=== PATIENT | male | born 1950 | race Caucasian/White ===

== ENCOUNTER 2021-09-26 11:36 | Inpatient (IN) ==
[2021-09-26] MEDS ORDERED: *HR* Dextrose 50 % in Water (Syg) 50 ML SYRINGE IVP PRN (12:38)
[2021-09-26] MEDS ORDERED: D5% in Water 1,000 ML IVC PRN (12:38)
[2021-09-26] MEDS ORDERED: Dextrose 4 GM Chewable Tablets PO PRN ×2 (12:38)
[2021-09-26] MEDS: Insulin LISPRO 300 UNITS/3 ML VIAL SUBQ SCH ×2 (16:42→22:04)
[2021-09-26] MEDS: Metoprolol 100 MG TABLET PO SCH (22:03)
[2021-09-26] MEDS: cephALEXin 500 MG CAPSULE PO SCH (22:03)
[2021-09-26] MEDS: Gabapentin 100 MG CAPSULE PO SCH (22:04)
[2021-09-26] MEDS: Insulin DETEMIR 100 UNIT/ML X5UNITS SUBQ SCH (22:05)
[2021-09-27 06:20] LABS: Basophils # 0.1 K/mcL (0.0-0.2); Basophils % 1.2 %; Eosinophils # 0.2 K/mcL (0.0-0.6); Eosinophils % 2.1 %; Hematocrit 37.1 % (37.5-50.1); Hemoglobin 12.1 g/dL (12.9-16.9); Immature Granulocytes % 4.9 % (0-4); Lymphocytes # 2.9 K/mcL (0.6-4.6); Lymphocytes % 29.3 %; Mean Corpuscular HGB Conc 32.6 g/dL (31.6-35.5); Mean Corpuscular Hemoglobin 29.1 pg (28.0-33.3); Mean Corpuscular Volume 89.2 fL (83.0-100.0); Mean Platelet Volume 10.9 fL (9.4-12.4); Monocytes # 1.2 K/mcL (0.0-1.3); Monocytes % 11.5 %; Neutrophils # 5.1 K/mcL (1.6-8.9); Platelet Count 360 K/mcL (140-400); Red Blood Count 4.16 M/mcL (4.19-5.50); Red Cell Distribution Width 14.8 % (11.5-14.5)
[2021-09-27 07:06] LABS: BUN/Creatinine Ratio 25 (6-26); Blood Urea Nitrogen 32 mg/dL (8-23); Calcium 10.5 mg/dL (8.6-10.3); Carbon Dioxide 28 mEq/L (23-29); Chloride 102 mEq/L (98-107); Glucose 166 mg/dL (70-105); Osmolality,Calculated 293 (280-300); Sodium 136 mEq/L (136-145); eGFR For African Americans > 60 (> 60); eGFR For Non-African Americans 56 (> 60)
[2021-09-27] MEDS: Metoprolol 100 MG TABLET PO SCH ×2 (08:24→22:07)
[2021-09-27] MEDS: Gabapentin 100 MG CAPSULE PO SCH ×2 (08:25→22:08)
[2021-09-27] MEDS: cephALEXin 500 MG CAPSULE PO SCH ×2 (08:25→22:08)
[2021-09-27] MEDS: Aspirin 81 MG TAB.CHEW PO SCH (08:25)
[2021-09-27] MEDS: modafiniL 100 MG TABLET PO SCH (08:25)
[2021-09-27] MEDS: Cyanocobalamin (B-12) 1,000 MCG TABLET PO SCH (08:25)
[2021-09-27] MEDS: Insulin DETEMIR 100 UNIT/ML X5UNITS SUBQ SCH ×2 (08:34→22:08)
[2021-09-27] MEDS: Insulin LISPRO 300 UNITS/3 ML VIAL SUBQ SCH ×4 (08:34→22:08)
[2021-09-27 10:49] LABS: Estimated Average Glucose 232 mg/dl; Hemoglobin A1C 9.7 %
[2021-09-28 06:09] LABS: Hematocrit 37.1 % (37.5-50.1); Hemoglobin 11.9 g/dL (12.9-16.9); Mean Corpuscular HGB Conc 32.1 g/dL (31.6-35.5); Mean Corpuscular Hemoglobin 28.8 pg (28.0-33.3); Mean Corpuscular Volume 89.8 fL (83.0-100.0); Mean Platelet Volume 11.1 fL (9.4-12.4); Platelet Count 355 K/mcL (140-400); Red Blood Count 4.13 M/mcL (4.19-5.50); Red Cell Distribution Width 14.7 % (11.5-14.5); White Blood Count 10.3 K/mcL (4.3-11.1)
[2021-09-28 09:09] LABS: Alanine Aminotransferase 115 Units/L (7-52); Albumin 3.6 g/dL (3.5-5.7); Alkaline Phosphatase 78 Units/L (34-104); Aspartate Amino Transferase 36 Units/L (13-39); BUN/Creatinine Ratio 26 (6-26); Bilirubin,Total 0.5 mg/dL (0.3-1.0); Blood Urea Nitrogen 31 mg/dL (8-23); Calcium 10.4 mg/dL (8.6-10.3); Carbon Dioxide 29 mEq/L (23-29); Chloride 104 mEq/L (98-107); Globulin 3.7 g/dL (2.4-3.5); Glucose 106 mg/dL (70-105); Magnesium 1.9 mg/dL (1.6-2.6); Osmolality,Calculated 297 (280-300); Potassium 3.9 mEq/L (3.5-5.1); Sodium 140 mEq/L (136-145); Total Protein 7.3 g/dL (6.4-8.9); eGFR For African Americans > 60 (> 60); eGFR For Non-African Americans > 60 (> 60)
[2021-09-28] MEDS: Gabapentin 100 MG CAPSULE PO SCH ×2 (10:07→19:50)
[2021-09-28] MEDS: modafiniL 100 MG TABLET PO SCH (10:08)
[2021-09-28] MEDS: Metoprolol 100 MG TABLET PO SCH ×2 (10:08→19:50)
[2021-09-28] MEDS: Cyanocobalamin (B-12) 1,000 MCG TABLET PO SCH (10:09)
[2021-09-28] MEDS: Insulin LISPRO 300 UNITS/3 ML VIAL SUBQ SCH ×4 (10:09→19:50)
[2021-09-28] MEDS: cephALEXin 500 MG CAPSULE PO SCH ×2 (10:09→19:50)
[2021-09-28] MEDS: Aspirin 81 MG TAB.CHEW PO SCH (10:09)
[2021-09-28] MEDS: Insulin DETEMIR 100 UNIT/ML X5UNITS SUBQ SCH ×2 (10:09→19:52)
[2021-09-29] MEDS: Cyanocobalamin (B-12) 1,000 MCG TABLET PO SCH (08:48)
[2021-09-29] MEDS: modafiniL 100 MG TABLET PO SCH (08:48)
[2021-09-29] MEDS: Gabapentin 100 MG CAPSULE PO SCH ×2 (08:48→21:50)
[2021-09-29] MEDS: Metoprolol 100 MG TABLET PO SCH ×2 (08:48→21:51)
[2021-09-29] MEDS: Insulin LISPRO 300 UNITS/3 ML VIAL SUBQ SCH ×4 (08:48→21:52)
[2021-09-29] MEDS: Aspirin 81 MG TAB.CHEW PO SCH (08:48)
[2021-09-29] MEDS: cephALEXin 500 MG CAPSULE PO SCH ×2 (08:48→21:50)
[2021-09-29] MEDS: Insulin DETEMIR 100 UNIT/ML X5UNITS SUBQ SCH ×2 (09:04→21:51)
[2021-09-29 18:30] LABS: Bilirubin,Urine Negative (Negative); Blood,Urine Small (Negative); Clarity,Urine Clear (Clear); Color,Urine Yellow (Yellow); Glucose,Urine (UA) 100 mg/dL (Normal); Ketones,Urine Negative (Negative); Leukocyte Esterase,Urine Negative (Negative); Nitrite,Urine Negative (Negative); PH,Urine 5.5 pH Units (5.0-8.0); Protein,Urine Negative (Neg-Trace); Specific Gravity,Urine >= 1.030 (1.010-1.025); Urobilinogen,Urine Normal (Normal)
[2021-09-29 18:56] LABS: Bacteria,Urine None Seen per hpf (None-Few); Hyaline Casts,Urine Many per lpf (None Seen); RBC,Urine 0-3 per hpf (0-3); Squamous Epithelial Cell,Urine Few per hpf (None-Few); WBC,Urine 0-3 per hpf (0-3)
[2021-09-30] MEDS: Aspirin 81 MG TAB.CHEW PO SCH (09:14)
[2021-09-30] MEDS: cephALEXin 500 MG CAPSULE PO SCH (09:15)
[2021-09-30] MEDS: modafiniL 100 MG TABLET PO SCH (09:15)
[2021-09-30] MEDS: Insulin LISPRO 300 UNITS/3 ML VIAL SUBQ SCH ×4 (09:15→21:22)
[2021-09-30] MEDS: Metoprolol 100 MG TABLET PO SCH ×2 (09:15→21:39)
[2021-09-30] MEDS: Cyanocobalamin (B-12) 1,000 MCG TABLET PO SCH (09:15)
[2021-09-30] MEDS: Gabapentin 100 MG CAPSULE PO SCH ×2 (09:15→21:40)
[2021-09-30] MEDS: Insulin DETEMIR 100 UNIT/ML X5UNITS SUBQ SCH ×2 (09:19→21:48)
[2021-10-01 05:00] LABS: Hematocrit 35.4 % (37.5-50.1); Hemoglobin 11.5 g/dL (12.9-16.9); Mean Corpuscular HGB Conc 32.5 g/dL (31.6-35.5); Mean Corpuscular Hemoglobin 28.7 pg (28.0-33.3); Mean Corpuscular Volume 88.3 fL (83.0-100.0); Mean Platelet Volume 10.6 fL (9.4-12.4); Platelet Count 298 K/mcL (140-400); Red Blood Count 4.01 M/mcL (4.19-5.50); Red Cell Distribution Width 14.8 % (11.5-14.5); White Blood Count 10.1 K/mcL (4.3-11.1)
[2021-10-01 05:38] LABS: Alanine Aminotransferase 94 Units/L (7-52); Albumin 3.4 g/dL (3.5-5.7); Albumin/Globulin Ratio 1.1 (1.1-2.2); Alkaline Phosphatase 82 Units/L (34-104); Aspartate Amino Transferase 47 Units/L (13-39); BUN/Creatinine Ratio 28 (6-26); Bilirubin,Total 0.5 mg/dL (0.3-1.0); Blood Urea Nitrogen 34 mg/dL (8-23); Calcium 9.8 mg/dL (8.6-10.3); Carbon Dioxide 26 mEq/L (23-29); Chloride 102 mEq/L (98-107); Globulin 3.2 g/dL (2.4-3.5); Glucose 198 mg/dL (70-105); Magnesium 1.8 mg/dL (1.6-2.6); Osmolality,Calculated 295 (280-300); Potassium 4.1 mEq/L (3.5-5.1); Sodium 136 mEq/L (136-145); Total Protein 6.6 g/dL (6.4-8.9); eGFR For African Americans > 60 (> 60); eGFR For Non-African Americans 59 (> 60)
[2021-10-01] MEDS: Cyanocobalamin (B-12) 1,000 MCG TABLET PO SCH (08:52)
[2021-10-01] MEDS: Insulin LISPRO 300 UNITS/3 ML VIAL SUBQ SCH ×4 (08:53→19:31)
[2021-10-01] MEDS: Metoprolol 100 MG TABLET PO SCH ×2 (08:53→19:40)
[2021-10-01] MEDS: modafiniL 100 MG TABLET PO SCH (08:53)
[2021-10-01] MEDS: Aspirin 81 MG TAB.CHEW PO SCH (08:53)
[2021-10-01] MEDS: Gabapentin 100 MG CAPSULE PO SCH ×2 (08:53→19:40)
[2021-10-01] MEDS: Insulin DETEMIR 100 UNIT/ML X5UNITS SUBQ SCH ×2 (08:58→19:34)
[2021-10-02] MEDS: Insulin LISPRO 300 UNITS/3 ML VIAL SUBQ SCH ×4 (08:46→21:04)
[2021-10-02] MEDS: Insulin DETEMIR 100 UNIT/ML X5UNITS SUBQ SCH ×2 (08:46→21:05)
[2021-10-02] MEDS: modafiniL 100 MG TABLET PO SCH (08:47)
[2021-10-02] MEDS: Cyanocobalamin (B-12) 1,000 MCG TABLET PO SCH (08:48)
[2021-10-02] MEDS: Aspirin 81 MG TAB.CHEW PO SCH (08:48)
[2021-10-02] MEDS: Gabapentin 100 MG CAPSULE PO SCH ×2 (08:48→21:05)
[2021-10-02] MEDS: Metoprolol 100 MG TABLET PO SCH ×2 (08:48→21:05)
[2021-10-03] MEDS: Metoprolol 100 MG TABLET PO SCH ×2 (08:10→21:13)
[2021-10-03] MEDS: Cyanocobalamin (B-12) 1,000 MCG TABLET PO SCH (08:10)
[2021-10-03] MEDS: Gabapentin 100 MG CAPSULE PO SCH ×2 (08:10→21:13)
[2021-10-03] MEDS: Aspirin 81 MG TAB.CHEW PO SCH (08:10)
[2021-10-03] MEDS: modafiniL 100 MG TABLET PO SCH (08:10)
[2021-10-03] MEDS: Insulin LISPRO 300 UNITS/3 ML VIAL SUBQ SCH ×4 (08:11→21:09)
[2021-10-03] MEDS: Insulin DETEMIR 100 UNIT/ML X5UNITS SUBQ SCH ×2 (08:11→21:09)
[2021-10-03] MEDS: Doxycycline 100 MG CAPSULE PO SCH (21:12)
[2021-10-04 06:32] LABS: Hematocrit 34.1 % (37.5-50.1); Hemoglobin 11.4 g/dL (12.9-16.9); Mean Corpuscular HGB Conc 33.4 g/dL (31.6-35.5); Mean Corpuscular Hemoglobin 29.1 pg (28.0-33.3); Mean Platelet Volume 10.3 fL (9.4-12.4); Platelet Count 243 K/mcL (140-400); Red Blood Count 3.92 M/mcL (4.19-5.50); Red Cell Distribution Width 14.8 % (11.5-14.5); White Blood Count 12.2 K/mcL (4.3-11.1)
[2021-10-04 06:47] LABS: Alanine Aminotransferase 136 Units/L (7-52); Albumin 3.5 g/dL (3.5-5.7); Albumin/Globulin Ratio 1.3 (1.1-2.2); Alkaline Phosphatase 87 Units/L (34-104); Aspartate Amino Transferase 63 Units/L (13-39); BUN/Creatinine Ratio 24 (6-26); Bilirubin,Total 0.5 mg/dL (0.3-1.0); Blood Urea Nitrogen 24 mg/dL (8-23); Calcium 9.2 mg/dL (8.6-10.3); Carbon Dioxide 25 mEq/L (23-29); Chloride 103 mEq/L (98-107); Globulin 2.7 g/dL (2.4-3.5); Glucose 142 mg/dL (70-105); Magnesium 1.9 mg/dL (1.6-2.6); Osmolality,Calculated 290 (280-300); Potassium 4.2 mEq/L (3.5-5.1); Sodium 137 mEq/L (136-145); Total Protein 6.2 g/dL (6.4-8.9); eGFR For African Americans > 60 (> 60); eGFR For Non-African Americans > 60 (> 60)
[2021-10-04] MEDS: Gabapentin 100 MG CAPSULE PO SCH ×2 (07:54→20:02)
[2021-10-04] MEDS: Doxycycline 100 MG CAPSULE PO SCH ×2 (07:54→20:02)
[2021-10-04] MEDS: modafiniL 100 MG TABLET PO SCH (07:54)
[2021-10-04] MEDS: Metoprolol 100 MG TABLET PO SCH ×2 (07:54→20:02)
[2021-10-04] MEDS: Cyanocobalamin (B-12) 1,000 MCG TABLET PO SCH (07:55)
[2021-10-04] MEDS: Insulin DETEMIR 100 UNIT/ML X5UNITS SUBQ SCH ×2 (07:55→20:02)
[2021-10-04] MEDS: Aspirin 81 MG TAB.CHEW PO SCH (07:55)
[2021-10-04] MEDS: Insulin LISPRO 300 UNITS/3 ML VIAL SUBQ SCH ×4 (08:10→20:02)
[2021-10-04] MEDS ORDERED: Bisacodyl 10 MG RECTAL SUPPOSITORY RC PRN (16:00)
[2021-10-04] MEDS: polyethylene glycoL 3350 17 GM POWD.PACK PO SCH (16:25)
[2021-10-04] MEDS: Sennosides/Docusate Sodium TABLET PO SCH (20:08)
[2021-10-05 05:29] LABS: Bilirubin,Urine Negative (Negative); Blood,Urine Negative (Negative); Clarity,Urine Clear (Clear); Color,Urine Yellow (Yellow); Glucose,Urine (UA) Normal (Normal); Ketones,Urine Negative (Negative); Leukocyte Esterase,Urine Negative (Negative); Nitrite,Urine Negative (Negative); Protein,Urine Negative (Neg-Trace); Specific Gravity,Urine <= 1.005 (1.010-1.025); Urobilinogen,Urine Normal (Normal)
[2021-10-05] MEDS: Insulin LISPRO 300 UNITS/3 ML VIAL SUBQ SCH ×4 (07:12→20:34)
[2021-10-05] MEDS: polyethylene glycoL 3350 17 GM POWD.PACK PO SCH (08:12)
[2021-10-05] MEDS: Aspirin 81 MG TAB.CHEW PO SCH (08:14)
[2021-10-05] MEDS: Cyanocobalamin (B-12) 1,000 MCG TABLET PO SCH (08:14)
[2021-10-05] MEDS: Doxycycline 100 MG CAPSULE PO SCH ×2 (08:15→20:27)
[2021-10-05] MEDS: Sennosides/Docusate Sodium TABLET PO SCH ×2 (08:15→20:28)
[2021-10-05] MEDS: Metoprolol 100 MG TABLET PO SCH ×2 (08:15→20:27)
[2021-10-05] MEDS: Gabapentin 100 MG CAPSULE PO SCH ×3 (08:15→20:27)
[2021-10-05] MEDS: Insulin DETEMIR 100 UNIT/ML X5UNITS SUBQ SCH ×2 (08:16→20:33)
[2021-10-05] MEDS: modafiniL 100 MG TABLET PO SCH (08:17)
[2021-10-06 04:54] LABS: Hematocrit 33.6 % (37.5-50.1); Mean Corpuscular HGB Conc 32.7 g/dL (31.6-35.5); Mean Corpuscular Hemoglobin 28.6 pg (28.0-33.3); Mean Corpuscular Volume 87.5 fL (83.0-100.0); Platelet Count 198 K/mcL (140-400); Red Blood Count 3.84 M/mcL (4.19-5.50); Red Cell Distribution Width 14.9 % (11.5-14.5); White Blood Count 9.3 K/mcL (4.3-11.1)
[2021-10-06 05:09] LABS: Alanine Aminotransferase 142 Units/L (7-52); Albumin 3.3 g/dL (3.5-5.7); Albumin/Globulin Ratio 1.1 (1.1-2.2); Alkaline Phosphatase 85 Units/L (34-104); Aspartate Amino Transferase 68 Units/L (13-39); BUN/Creatinine Ratio 24 (6-26); Bilirubin,Total 0.4 mg/dL (0.3-1.0); Blood Urea Nitrogen 24 mg/dL (8-23); Calcium 9.1 mg/dL (8.6-10.3); Carbon Dioxide 27 mEq/L (23-29); Chloride 103 mEq/L (98-107); Globulin 2.9 g/dL (2.4-3.5); Glucose 169 mg/dL (70-105); Magnesium 1.8 mg/dL (1.6-2.6); Osmolality,Calculated 292 (280-300); Potassium 4.1 mEq/L (3.5-5.1); Sodium 137 mEq/L (136-145); Total Protein 6.2 g/dL (6.4-8.9); eGFR For African Americans > 60 (> 60); eGFR For Non-African Americans > 60 (> 60)
[2021-10-06] MEDS: Gabapentin 100 MG CAPSULE PO SCH ×3 (09:07→20:52)
[2021-10-06] MEDS: Metoprolol 100 MG TABLET PO SCH ×2 (09:08→20:52)
[2021-10-06] MEDS: modafiniL 100 MG TABLET PO SCH (09:08)
[2021-10-06] MEDS: Doxycycline 100 MG CAPSULE PO SCH ×2 (09:08→20:52)
[2021-10-06] MEDS: Sennosides/Docusate Sodium TABLET PO SCH ×2 (09:08→20:52)
[2021-10-06] MEDS: polyethylene glycoL 3350 17 GM POWD.PACK PO SCH (09:08)
[2021-10-06] MEDS: Aspirin 81 MG TAB.CHEW PO SCH (09:08)
[2021-10-06] MEDS: Cyanocobalamin (B-12) 1,000 MCG TABLET PO SCH (09:08)
[2021-10-06] MEDS: Insulin LISPRO 300 UNITS/3 ML VIAL SUBQ SCH ×4 (09:23→20:53)
[2021-10-06] MEDS: Insulin DETEMIR 100 UNIT/ML X5UNITS SUBQ SCH ×2 (09:24→20:53)
[2021-10-06] MEDS: Acetaminophen 325 MG TABLET PO PRN (20:52)
[2021-10-07] MEDS: Cyanocobalamin (B-12) 1,000 MCG TABLET PO SCH (08:40)
[2021-10-07] MEDS: Doxycycline 100 MG CAPSULE PO SCH ×2 (08:40→19:49)
[2021-10-07] MEDS: modafiniL 100 MG TABLET PO SCH (08:40)
[2021-10-07] MEDS: Sennosides/Docusate Sodium TABLET PO SCH ×2 (08:40→19:48)
[2021-10-07] MEDS: Insulin DETEMIR 100 UNIT/ML X5UNITS SUBQ SCH ×2 (08:40→19:48)
[2021-10-07] MEDS: Gabapentin 100 MG CAPSULE PO SCH ×3 (08:40→19:48)
[2021-10-07] MEDS: Aspirin 81 MG TAB.CHEW PO SCH (08:40)
[2021-10-07] MEDS: Metoprolol 100 MG TABLET PO SCH ×2 (08:40→19:49)
[2021-10-07] MEDS: polyethylene glycoL 3350 17 GM POWD.PACK PO SCH (08:41)
[2021-10-07] MEDS: Insulin LISPRO 300 UNITS/3 ML VIAL SUBQ SCH ×4 (08:42→19:57)
[2021-10-07] MEDS: Acetaminophen 325 MG TABLET PO PRN (19:49)
[2021-10-08] MEDS: Gabapentin 100 MG CAPSULE PO SCH ×3 (08:00→20:59)
[2021-10-08] MEDS: Metoprolol 100 MG TABLET PO SCH ×2 (08:00→20:59)
[2021-10-08] MEDS: polyethylene glycoL 3350 17 GM POWD.PACK PO SCH (08:00)
[2021-10-08] MEDS: Doxycycline 100 MG CAPSULE PO SCH ×2 (08:01→20:59)
[2021-10-08] MEDS: Sennosides/Docusate Sodium TABLET PO SCH ×2 (08:01→20:58)
[2021-10-08] MEDS: Aspirin 81 MG TAB.CHEW PO SCH (08:01)
[2021-10-08] MEDS: Insulin LISPRO 300 UNITS/3 ML VIAL SUBQ SCH ×4 (08:01→21:01)
[2021-10-08] MEDS: Cyanocobalamin (B-12) 1,000 MCG TABLET PO SCH (08:01)
[2021-10-08] MEDS: modafiniL 100 MG TABLET PO SCH (08:01)
[2021-10-08] MEDS: Insulin DETEMIR 100 UNIT/ML X5UNITS SUBQ SCH ×2 (08:13→20:59)
[2021-10-08] MEDS: Acetaminophen 325 MG TABLET PO PRN (20:58)
[2021-10-09] MEDS: polyethylene glycoL 3350 17 GM POWD.PACK PO SCH (08:29)
[2021-10-09] MEDS: Insulin DETEMIR 100 UNIT/ML X5UNITS SUBQ SCH ×2 (08:30→21:07)
[2021-10-09] MEDS: Insulin LISPRO 300 UNITS/3 ML VIAL SUBQ SCH ×4 (08:32→21:09)
[2021-10-09] MEDS: Gabapentin 100 MG CAPSULE PO SCH ×3 (08:33→21:08)
[2021-10-09] MEDS: Sennosides/Docusate Sodium TABLET PO SCH ×2 (08:33→21:09)
[2021-10-09] MEDS: Doxycycline 100 MG CAPSULE PO SCH (08:33)
[2021-10-09] MEDS: Cyanocobalamin (B-12) 1,000 MCG TABLET PO SCH (08:33)
[2021-10-09] MEDS: modafiniL 100 MG TABLET PO SCH (08:34)
[2021-10-09] MEDS: Metoprolol 100 MG TABLET PO SCH ×2 (08:34→21:08)
[2021-10-09] MEDS: Aspirin 81 MG TAB.CHEW PO SCH (08:34)
[2021-10-09 09:06] LABS: Bilirubin,Urine Negative (Negative); Blood,Urine Trace-intact (Negative); Clarity,Urine Clear (Clear); Color,Urine Yellow (Yellow); Glucose,Urine (UA) Normal (Normal); Ketones,Urine Negative (Negative); Leukocyte Esterase,Urine Negative (Negative); Nitrite,Urine Negative (Negative); PH,Urine 7.5 pH Units (5.0-8.0); Protein,Urine 30 mg/dL (Neg-Trace); Urobilinogen,Urine Normal (Normal)
[2021-10-09] MEDS: Acetaminophen 325 MG TABLET PO PRN (21:08)
[2021-10-10 05:41] LABS: Hematocrit 35.6 % (37.5-50.1); Hemoglobin 11.3 g/dL (12.9-16.9); Mean Corpuscular HGB Conc 31.7 g/dL (31.6-35.5); Mean Corpuscular Hemoglobin 28.6 pg (28.0-33.3); Mean Corpuscular Volume 90.1 fL (83.0-100.0); Mean Platelet Volume 10.6 fL (9.4-12.4); Platelet Count 150 K/mcL (140-400); Red Blood Count 3.95 M/mcL (4.19-5.50); Red Cell Distribution Width 15.2 % (11.5-14.5); White Blood Count 8.5 K/mcL (4.3-11.1)
[2021-10-10 06:03] LABS: Alanine Aminotransferase 108 Units/L (7-52); Albumin 3.6 g/dL (3.5-5.7); Albumin/Globulin Ratio 1.2 (1.1-2.2); Alkaline Phosphatase 87 Units/L (34-104); Aspartate Amino Transferase 39 Units/L (13-39); BUN/Creatinine Ratio 18 (6-26); Bilirubin,Total 0.5 mg/dL (0.3-1.0); Blood Urea Nitrogen 21 mg/dL (8-23); Calcium 9.6 mg/dL (8.6-10.3); Carbon Dioxide 34 mEq/L (23-29); Chloride 97 mEq/L (98-107); Glucose 144 mg/dL (70-105); Magnesium 1.9 mg/dL (1.6-2.6); Osmolality,Calculated 282 (280-300); Sodium 133 mEq/L (136-145); Total Protein 6.6 g/dL (6.4-8.9); eGFR For African Americans > 60 (> 60); eGFR For Non-African Americans > 60 (> 60)
[2021-10-10] MEDS: Insulin LISPRO 300 UNITS/3 ML VIAL SUBQ SCH ×4 (08:57→20:30)
[2021-10-10] MEDS: polyethylene glycoL 3350 17 GM POWD.PACK PO SCH (09:55)
[2021-10-10] MEDS: Insulin DETEMIR 100 UNIT/ML X5UNITS SUBQ SCH ×2 (09:56→20:29)
[2021-10-10] MEDS: Metoprolol 100 MG TABLET PO SCH ×2 (09:57→20:30)
[2021-10-10] MEDS: Aspirin 81 MG TAB.CHEW PO SCH (09:57)
[2021-10-10] MEDS: Sennosides/Docusate Sodium TABLET PO SCH ×2 (09:57→20:30)
[2021-10-10] MEDS: Cyanocobalamin (B-12) 1,000 MCG TABLET PO SCH (09:58)
[2021-10-10] MEDS: modafiniL 100 MG TABLET PO SCH (09:58)
[2021-10-10] MEDS: Gabapentin 100 MG CAPSULE PO SCH ×3 (09:58→20:30)
[2021-10-10] MEDS: Acetaminophen 325 MG TABLET PO PRN (20:31)
[2021-10-11] MEDS: polyethylene glycoL 3350 17 GM POWD.PACK PO SCH (07:47)
[2021-10-11] MEDS: Aspirin 81 MG TAB.CHEW PO SCH (07:48)
[2021-10-11] MEDS: Gabapentin 100 MG CAPSULE PO SCH ×3 (07:49→20:19)
[2021-10-11] MEDS: Sennosides/Docusate Sodium TABLET PO SCH ×2 (07:49→20:19)
[2021-10-11] MEDS: Metoprolol 100 MG TABLET PO SCH ×2 (07:49→20:20)
[2021-10-11] MEDS: modafiniL 100 MG TABLET PO SCH (07:49)
[2021-10-11] MEDS: Cyanocobalamin (B-12) 1,000 MCG TABLET PO SCH (07:49)
[2021-10-11] MEDS: Insulin LISPRO 300 UNITS/3 ML VIAL SUBQ SCH ×4 (07:59→20:20)
[2021-10-11] MEDS: Insulin DETEMIR 100 UNIT/ML X5UNITS SUBQ SCH ×2 (08:01→20:20)
[2021-10-11] MEDS: Acetaminophen 325 MG TABLET PO PRN (20:20)
[2021-10-12] MEDS: polyethylene glycoL 3350 17 GM POWD.PACK PO SCH (08:12)
[2021-10-12] MEDS: Sennosides/Docusate Sodium TABLET PO SCH ×2 (08:14→21:29)
[2021-10-12] MEDS: Gabapentin 100 MG CAPSULE PO SCH ×3 (08:15→21:28)
[2021-10-12] MEDS: Metoprolol 100 MG TABLET PO SCH ×2 (08:15→21:28)
[2021-10-12] MEDS: Aspirin 81 MG TAB.CHEW PO SCH (08:15)
[2021-10-12] MEDS: Insulin LISPRO 300 UNITS/3 ML VIAL SUBQ SCH ×4 (08:16→21:30)
[2021-10-12] MEDS: Insulin DETEMIR 100 UNIT/ML X5UNITS SUBQ SCH ×2 (08:16→21:29)
[2021-10-12] MEDS: Cyanocobalamin (B-12) 1,000 MCG TABLET PO SCH (08:22)
[2021-10-13 06:55] VITALS: BP 123/70; PULSE 73; RESP 15; TEMP 97.5; O2SAT 96
[2021-10-13] MEDS ORDERED: Vancomycin (wt based) 1,000 MG VIAL IVPB ONE (07:00)
[2021-10-13] MEDS ORDERED: Piperacillin/Tazobactam 3.375 GM in 0.9 % Sodium Chloride Mini Bag 100 ML IVPB SCH (08:00)
[2021-10-13 09:20] LABS: Basophils # 0.1 K/mcL (0.0-0.2); Basophils % 0.8 %; Eosinophils # 0.4 K/mcL (0.0-0.6); Eosinophils % 4.1 %; Hematocrit 37.3 % (37.5-50.1); Hemoglobin 11.9 g/dL (12.9-16.9); Immature Granulocytes % 0.7 % (0-4); Lymphocytes # 2.7 K/mcL (0.6-4.6); Lymphocytes % 29.5 %; Mean Corpuscular HGB Conc 31.9 g/dL (31.6-35.5); Mean Corpuscular Hemoglobin 28.5 pg (28.0-33.3); Mean Corpuscular Volume 89.4 fL (83.0-100.0); Mean Platelet Volume 10.8 fL (9.4-12.4); Monocytes # 0.8 K/mcL (0.0-1.3); Monocytes % 8.8 %; Neutrophils # 5.2 K/mcL (1.6-8.9); Platelet Count 149 K/mcL (140-400); Red Blood Count 4.17 M/mcL (4.19-5.50); Segmented Neutrophils % 56.1 %; White Blood Count 9.2 K/mcL (4.3-11.1)
[2021-10-13 09:43] LABS: BUN/Creatinine Ratio 21 (6-26); Blood Urea Nitrogen 24 mg/dL (8-23); Carbon Dioxide 31 mEq/L (23-29); Chloride 97 mEq/L (98-107); Glucose 185 mg/dL (70-105); Osmolality,Calculated 291 (280-300); Potassium 4.3 mEq/L (3.5-5.1); Sodium 136 mEq/L (136-145); eGFR For African Americans > 60 (> 60); eGFR For Non-African Americans > 60 (> 60)
[2021-10-13] MEDS: Insulin LISPRO 300 UNITS/3 ML VIAL SUBQ SCH ×2 (09:43→11:23)
[2021-10-13] MEDS: Aspirin 81 MG TAB.CHEW PO SCH (09:44)
[2021-10-13] MEDS: Cyanocobalamin (B-12) 1,000 MCG TABLET PO SCH (09:44)
[2021-10-13] MEDS: Gabapentin 100 MG CAPSULE PO SCH ×2 (09:44→16:04)
[2021-10-13] MEDS: Metoprolol 100 MG TABLET PO SCH (09:44)
[2021-10-13] MEDS: Sennosides/Docusate Sodium TABLET PO SCH (09:45)
[2021-10-13] MEDS: polyethylene glycoL 3350 17 GM POWD.PACK PO SCH (09:45)
[2021-10-13] MEDS: Insulin DETEMIR 100 UNIT/ML X5UNITS SUBQ SCH (09:46)
[2021-10-13] MEDS: Acetaminophen 325 MG TABLET PO PRN (16:04)
[2021-10-13] MEDS ORDERED: Vancomycin 1,250 MG/262.5 ML IV.SOLN IVPB SCH (22:00)
== END 2021-10-13 16:25 | disposition short-term general hospital (02) | DRG 57 ==
LOC: INPGRE 11:46
PROVIDERS: ADMIT Family Medicine; ATTEND Family Medicine

== ENCOUNTER 2021-10-19 15:00 | Inpatient (IN) ==
[2021-11-01] MEDS ORDERED: *HR* Dextrose 50 % in Water (Syg) 50 ML SYRINGE IVP PRN (22:39)
[2021-11-01] MEDS ORDERED: Dextrose 4 GM Chewable Tablets PO PRN ×2 (22:39)
[2021-11-01] MEDS ORDERED: Naloxone 0.4 MG/ML INJ IVP PRN (23:08)
[2021-11-01] MEDS ORDERED: Ondansetron ODT 4 MG TAB.RAPDIS SL PRN (23:08)
[2021-11-01] MEDS ORDERED: D5% in Water 1,000 ML IVC PRN (23:12)
[2021-11-02 06:07] LABS: INR 1.1; Prothrombin Time 12.1 Seconds (9.4-12.1)
[2021-11-02 06:08] LABS: Hemoglobin 10.2 g/dL (12.9-16.9); Mean Corpuscular HGB Conc 31.9 g/dL (31.6-35.5); Mean Corpuscular Hemoglobin 28.7 pg (28.0-33.3); Mean Corpuscular Volume 89.9 fL (83.0-100.0); Mean Platelet Volume 10.2 fL (9.4-12.4); Platelet Count 375 K/mcL (140-400); Red Blood Count 3.56 M/mcL (4.19-5.50); Red Cell Distribution Width 16.1 % (11.5-14.5); White Blood Count 7.8 K/mcL (4.3-11.1)
[2021-11-02 06:10] LABS: Activated Partial Thrombo Time 31.3 Seconds (26.0-36.0)
[2021-11-02] MEDS ORDERED: INSULIN LISPRO SQ SCH (08:00)
[2021-11-02] MEDS ORDERED: modafiniL 100 MG TABLET PO SCH (09:00)
[2021-11-02] MEDS: cilostazoL 100 MG TABLET PO SCH ×2 (09:05→16:02)
[2021-11-02] MEDS: Cholecalciferol (D-3) 1,000 UNIT (25MCG) TABLET PO SCH (09:06)
[2021-11-02] MEDS: Cyanocobalamin (B-12) 1,000 MCG TABLET PO SCH (09:06)
[2021-11-02] MEDS: Metoprolol 100 MG TABLET PO SCH ×2 (09:06→20:08)
[2021-11-02] MEDS: Gabapentin 100 MG CAPSULE PO SCH ×3 (09:06→20:08)
[2021-11-02] MEDS: Insulin LISPRO 300 UNITS/3 ML VIAL SUBQ SCH ×3 (09:06→16:53)
[2021-11-02] MEDS: Acetaminophen 325 MG TABLET PO PRN ×2 (09:06→16:02)
[2021-11-02] MEDS: Aspirin 81 MG TAB.CHEW PO SCH (09:06)
[2021-11-02 13:29] LABS: Bilirubin,Urine Negative (Negative); Blood,Urine Negative (Negative); Clarity,Urine Clear (Clear); Color,Urine Yellow (Yellow); Glucose,Urine (UA) 100 mg/dL (Normal); Ketones,Urine Negative (Negative); Leukocyte Esterase,Urine Negative (Negative); Nitrite,Urine Negative (Negative); Protein,Urine Negative (Neg-Trace); Urobilinogen,Urine Normal (Normal)
[2021-11-02 13:39] LABS: Alanine Aminotransferase 41 Units/L (7-52); Albumin 3.6 g/dL (3.5-5.7); Albumin/Globulin Ratio 1.1 (1.1-2.2); Alkaline Phosphatase 67 Units/L (34-104); Aspartate Amino Transferase 33 Units/L (13-39); BUN/Creatinine Ratio 17 (6-26); Bilirubin,Total 0.3 mg/dL (0.3-1.0); Blood Urea Nitrogen 17 mg/dL (8-23); Calcium 9.8 mg/dL (8.6-10.3); Carbon Dioxide 27 mEq/L (23-29); Chloride 103 mEq/L (98-107); Globulin 3.3 g/dL (2.4-3.5); Glucose 225 mg/dL (70-105); Magnesium 1.6 mg/dL (1.6-2.6); Osmolality,Calculated 295 (280-300); Sodium 138 mEq/L (136-145); Total Protein 6.9 g/dL (6.4-8.9); eGFR For African Americans > 60 (> 60); eGFR For Non-African Americans > 60 (> 60)
[2021-11-02 13:42] LABS: Bacteria,Urine Few per hpf (None-Few); Mucus,Urine Few per lpf (None-Few); RBC,Urine 0-3 per hpf (0-3); WBC,Urine 0-3 per hpf (0-3)
[2021-11-02] MEDS: Insulin DETEMIR 100 UNIT/ML X5UNITS SUBQ SCH (20:07)
[2021-11-02] MEDS: Melatonin 3 MG TABLET PO PRN (20:08)
[2021-11-02] MEDS: Divalproex (12 HR) 250 MG TABLET PO SCH (20:11)
[2021-11-02] MEDS ORDERED: Insulin DETEMIR 100 UNIT/ML X5UNITS SUBQ SCH (21:00)
[2021-11-03] MEDS: Acetaminophen 325 MG TABLET PO PRN (09:17)
[2021-11-03] MEDS: Aspirin 81 MG TAB.CHEW PO SCH (09:18)
[2021-11-03] MEDS: Gabapentin 100 MG CAPSULE PO SCH ×3 (09:18→20:41)
[2021-11-03] MEDS: Metoprolol 100 MG TABLET PO SCH ×2 (09:18→20:41)
[2021-11-03] MEDS: Cholecalciferol (D-3) 1,000 UNIT (25MCG) TABLET PO SCH (09:18)
[2021-11-03] MEDS: modafiniL 100 MG TABLET PO SCH (09:18)
[2021-11-03] MEDS: cilostazoL 100 MG TABLET PO SCH ×2 (09:18→17:13)
[2021-11-03] MEDS: Cyanocobalamin (B-12) 1,000 MCG TABLET PO SCH (09:18)
[2021-11-03] MEDS: Insulin LISPRO 300 UNITS/3 ML VIAL SUBQ SCH ×3 (09:19→17:12)
[2021-11-03] MEDS: Insulin DETEMIR 100 UNIT/ML X5UNITS SUBQ SCH ×2 (09:46→20:44)
[2021-11-03] MEDS: Divalproex (12 HR) 250 MG TABLET PO SCH (20:41)
[2021-11-04] MEDS: Gabapentin 100 MG CAPSULE PO SCH ×3 (07:59→20:02)
[2021-11-04] MEDS: Acetaminophen 325 MG TABLET PO PRN ×2 (07:59→16:36)
[2021-11-04] MEDS: Metoprolol 100 MG TABLET PO SCH ×2 (07:59→20:03)
[2021-11-04] MEDS: cilostazoL 100 MG TABLET PO SCH ×2 (07:59→16:36)
[2021-11-04] MEDS: Cyanocobalamin (B-12) 1,000 MCG TABLET PO SCH (08:00)
[2021-11-04] MEDS: Cholecalciferol (D-3) 1,000 UNIT (25MCG) TABLET PO SCH (08:00)
[2021-11-04] MEDS: modafiniL 100 MG TABLET PO SCH (08:00)
[2021-11-04] MEDS: Aspirin 81 MG TAB.CHEW PO SCH (08:00)
[2021-11-04] MEDS: Insulin LISPRO 300 UNITS/3 ML VIAL SUBQ SCH ×3 (08:16→16:37)
[2021-11-04] MEDS: Insulin DETEMIR 100 UNIT/ML X5UNITS SUBQ SCH ×2 (08:16→20:26)
[2021-11-04] MEDS: Amoxicillin/Clavulanate 500 MG TABLET PO SCH (16:36)
[2021-11-04] MEDS: Melatonin 3 MG TABLET PO PRN (20:03)
[2021-11-04] MEDS: Divalproex (12 HR) 250 MG TABLET PO SCH (20:03)
[2021-11-05] MEDS: Acetaminophen 325 MG TABLET PO PRN ×3 (00:29→20:16)
[2021-11-05] MEDS: Amoxicillin/Clavulanate 500 MG TABLET PO SCH ×2 (08:18→16:07)
[2021-11-05] MEDS: Aspirin 81 MG TAB.CHEW PO SCH (08:19)
[2021-11-05] MEDS: Metoprolol 100 MG TABLET PO SCH ×2 (08:19→20:17)
[2021-11-05] MEDS: modafiniL 100 MG TABLET PO SCH (08:19)
[2021-11-05] MEDS: Gabapentin 100 MG CAPSULE PO SCH ×3 (08:19→20:16)
[2021-11-05] MEDS: Cholecalciferol (D-3) 1,000 UNIT (25MCG) TABLET PO SCH (08:19)
[2021-11-05] MEDS: cilostazoL 100 MG TABLET PO SCH ×2 (08:20→16:07)
[2021-11-05] MEDS: Cyanocobalamin (B-12) 1,000 MCG TABLET PO SCH (08:20)
[2021-11-05] MEDS: Insulin LISPRO 300 UNITS/3 ML VIAL SUBQ SCH ×3 (08:20→16:13)
[2021-11-05] MEDS: Insulin DETEMIR 100 UNIT/ML X5UNITS SUBQ SCH ×2 (08:20→20:17)
[2021-11-05] MEDS: Divalproex (12 HR) 250 MG TABLET PO SCH (20:16)
[2021-11-05] MEDS: Melatonin 3 MG TABLET PO PRN (20:17)
[2021-11-06 04:39] LABS: Basophils # 0.1 K/mcL (0.0-0.2); Basophils % 1.2 %; Eosinophils # 0.3 K/mcL (0.0-0.6); Eosinophils % 3.9 %; Hematocrit 31.6 % (37.5-50.1); Hemoglobin 10.2 g/dL (12.9-16.9); Immature Granulocytes % 1.3 % (0-4); Lymphocytes # 3.2 K/mcL (0.6-4.6); Lymphocytes % 41.3 %; Mean Corpuscular HGB Conc 32.3 g/dL (31.6-35.5); Mean Corpuscular Hemoglobin 29.5 pg (28.0-33.3); Mean Corpuscular Volume 91.3 fL (83.0-100.0); Mean Platelet Volume 9.9 fL (9.4-12.4); Monocytes # 1.1 K/mcL (0.0-1.3); Monocytes % 14.2 %; Neutrophils # 2.9 K/mcL (1.6-8.9); Platelet Count 373 K/mcL (140-400); Red Blood Count 3.46 M/mcL (4.19-5.50); Red Cell Distribution Width 16.2 % (11.5-14.5); Segmented Neutrophils % 38.1 %; White Blood Count 7.7 K/mcL (4.3-11.1)
[2021-11-06 04:52] LABS: BUN/Creatinine Ratio 20 (6-26); Blood Urea Nitrogen 22 mg/dL (8-23); Carbon Dioxide 30 mEq/L (23-29); Chloride 102 mEq/L (98-107); Glucose 184 mg/dL (70-105); Osmolality,Calculated 298 (280-300); Potassium 4.2 mEq/L (3.5-5.1); Sodium 140 mEq/L (136-145); eGFR For African Americans > 60 (> 60); eGFR For Non-African Americans > 60 (> 60)
[2021-11-06] MEDS: Cholecalciferol (D-3) 1,000 UNIT (25MCG) TABLET PO SCH (09:14)
[2021-11-06] MEDS: cilostazoL 100 MG TABLET PO SCH ×2 (09:14→16:19)
[2021-11-06] MEDS: Cyanocobalamin (B-12) 1,000 MCG TABLET PO SCH (09:14)
[2021-11-06] MEDS: Acetaminophen 325 MG TABLET PO PRN ×2 (09:14→16:18)
[2021-11-06] MEDS: Gabapentin 100 MG CAPSULE PO SCH ×3 (09:14→20:55)
[2021-11-06] MEDS: Metoprolol 100 MG TABLET PO SCH ×2 (09:14→20:55)
[2021-11-06] MEDS: Amoxicillin/Clavulanate 500 MG TABLET PO SCH ×2 (09:14→16:19)
[2021-11-06] MEDS: Aspirin 81 MG TAB.CHEW PO SCH (09:14)
[2021-11-06] MEDS: modafiniL 100 MG TABLET PO SCH (09:15)
[2021-11-06] MEDS: Insulin DETEMIR 100 UNIT/ML X5UNITS SUBQ SCH ×2 (09:22→20:54)
[2021-11-06] MEDS: Insulin LISPRO 300 UNITS/3 ML VIAL SUBQ SCH ×3 (09:22→16:22)
[2021-11-06] MEDS: Melatonin 3 MG TABLET PO PRN (21:26)
[2021-11-06] MEDS: Divalproex (12 HR) 250 MG TABLET PO SCH (21:27)
[2021-11-07] MEDS: Insulin LISPRO 300 UNITS/3 ML VIAL SUBQ SCH ×3 (09:31→17:09)
[2021-11-07] MEDS: modafiniL 100 MG TABLET PO SCH (09:34)
[2021-11-07] MEDS: Gabapentin 100 MG CAPSULE PO SCH ×3 (09:35→20:24)
[2021-11-07] MEDS: Amoxicillin/Clavulanate 500 MG TABLET PO SCH ×2 (09:35→17:00)
[2021-11-07] MEDS: Cholecalciferol (D-3) 1,000 UNIT (25MCG) TABLET PO SCH (09:36)
[2021-11-07] MEDS: cilostazoL 100 MG TABLET PO SCH ×2 (09:36→17:00)
[2021-11-07] MEDS: Aspirin 81 MG TAB.CHEW PO SCH (09:36)
[2021-11-07] MEDS: Cyanocobalamin (B-12) 1,000 MCG TABLET PO SCH (09:36)
[2021-11-07] MEDS: Metoprolol 100 MG TABLET PO SCH ×2 (09:36→20:24)
[2021-11-07] MEDS: Insulin DETEMIR 100 UNIT/ML X5UNITS SUBQ SCH ×2 (09:44→20:29)
[2021-11-07] MEDS: Divalproex (12 HR) 250 MG TABLET PO SCH (20:22)
[2021-11-08] MEDS: Cholecalciferol (D-3) 1,000 UNIT (25MCG) TABLET PO SCH (07:54)
[2021-11-08] MEDS: cilostazoL 100 MG TABLET PO SCH ×2 (07:54→16:21)
[2021-11-08] MEDS: Amoxicillin/Clavulanate 500 MG TABLET PO SCH ×2 (07:54→16:21)
[2021-11-08] MEDS: Gabapentin 100 MG CAPSULE PO SCH ×3 (07:54→22:05)
[2021-11-08] MEDS: modafiniL 100 MG TABLET PO SCH (07:54)
[2021-11-08] MEDS: Aspirin 81 MG TAB.CHEW PO SCH (07:54)
[2021-11-08] MEDS: Metoprolol 100 MG TABLET PO SCH ×2 (07:54→22:02)
[2021-11-08] MEDS: Cyanocobalamin (B-12) 1,000 MCG TABLET PO SCH (07:54)
[2021-11-08] MEDS: Insulin LISPRO 300 UNITS/3 ML VIAL SUBQ SCH ×3 (08:01→16:41)
[2021-11-08] MEDS: Insulin DETEMIR 100 UNIT/ML X5UNITS SUBQ SCH ×2 (08:03→22:13)
[2021-11-08] MEDS: Divalproex Sodium 125 MG Sprinkle Capsule (DR) PO SCH (22:04)
[2021-11-09 05:45] LABS: Hematocrit 33.3 % (37.5-50.1); Hemoglobin 10.5 g/dL (12.9-16.9); Mean Corpuscular HGB Conc 31.5 g/dL (31.6-35.5); Mean Corpuscular Hemoglobin 29.1 pg (28.0-33.3); Mean Corpuscular Volume 92.2 fL (83.0-100.0); Mean Platelet Volume 10.2 fL (9.4-12.4); Platelet Count 361 K/mcL (140-400); Red Blood Count 3.61 M/mcL (4.19-5.50); Red Cell Distribution Width 16.1 % (11.5-14.5); White Blood Count 11.1 K/mcL (4.3-11.1)
[2021-11-09 06:03] LABS: Alanine Aminotransferase 44 Units/L (7-52); Albumin 3.9 g/dL (3.5-5.7); Albumin/Globulin Ratio 1.2 (1.1-2.2); Alkaline Phosphatase 67 Units/L (34-104); Aspartate Amino Transferase 21 Units/L (13-39); BUN/Creatinine Ratio 18 (6-26); Bilirubin,Total 0.5 mg/dL (0.3-1.0); Blood Urea Nitrogen 22 mg/dL (8-23); Calcium 9.8 mg/dL (8.6-10.3); Carbon Dioxide 31 mEq/L (23-29); Chloride 101 mEq/L (98-107); Globulin 3.2 g/dL (2.4-3.5); Glucose 209 mg/dL (70-105); Magnesium 1.8 mg/dL (1.6-2.6); Osmolality,Calculated 299 (280-300); Potassium 4.3 mEq/L (3.5-5.1); Sodium 140 mEq/L (136-145); Total Protein 7.1 g/dL (6.4-8.9); eGFR For African Americans > 60 (> 60); eGFR For Non-African Americans 57 (> 60)
[2021-11-09] MEDS: Insulin DETEMIR 100 UNIT/ML X5UNITS SUBQ SCH ×2 (07:58→19:52)
[2021-11-09] MEDS: Insulin LISPRO 300 UNITS/3 ML VIAL SUBQ SCH ×3 (07:58→17:00)
[2021-11-09] MEDS: cilostazoL 100 MG TABLET PO SCH ×2 (08:02→18:24)
[2021-11-09] MEDS: Amoxicillin/Clavulanate 500 MG TABLET PO SCH ×2 (08:02→19:02)
[2021-11-09] MEDS: Aspirin 81 MG TAB.CHEW PO SCH (08:02)
[2021-11-09] MEDS: Metoprolol 100 MG TABLET PO SCH ×2 (08:03→19:43)
[2021-11-09] MEDS: Cyanocobalamin (B-12) 1,000 MCG TABLET PO SCH (08:03)
[2021-11-09] MEDS: Cholecalciferol (D-3) 1,000 UNIT (25MCG) TABLET PO SCH (08:03)
[2021-11-09] MEDS: modafiniL 100 MG TABLET PO SCH (08:04)
[2021-11-09] MEDS: Gabapentin 100 MG CAPSULE PO SCH ×3 (08:17→19:41)
[2021-11-09] MEDS: Divalproex Sodium 125 MG Sprinkle Capsule (DR) PO SCH (19:42)
[2021-11-10] MEDS: Acetaminophen 325 MG TABLET PO PRN ×2 (07:49→21:06)
[2021-11-10] MEDS: Sennosides/Docusate Sodium TABLET PO PRN (07:50)
[2021-11-10] MEDS: modafiniL 100 MG TABLET PO SCH (07:50)
[2021-11-10] MEDS: Aspirin 81 MG TAB.CHEW PO SCH (07:50)
[2021-11-10] MEDS: Cholecalciferol (D-3) 1,000 UNIT (25MCG) TABLET PO SCH (07:50)
[2021-11-10] MEDS: Cyanocobalamin (B-12) 1,000 MCG TABLET PO SCH (07:50)
[2021-11-10] MEDS: Gabapentin 100 MG CAPSULE PO SCH ×3 (07:50→21:07)
[2021-11-10] MEDS: Metoprolol 100 MG TABLET PO SCH ×2 (07:50→21:06)
[2021-11-10] MEDS: cilostazoL 100 MG TABLET PO SCH ×2 (07:50→15:26)
[2021-11-10] MEDS: Insulin DETEMIR 100 UNIT/ML X5UNITS SUBQ SCH ×2 (07:58→21:07)
[2021-11-10] MEDS: Insulin LISPRO 300 UNITS/3 ML VIAL SUBQ SCH ×3 (08:00→17:17)
[2021-11-10] MEDS: Divalproex Sodium 125 MG Sprinkle Capsule (DR) PO SCH (21:07)
[2021-11-10] MEDS: Melatonin 3 MG TABLET PO PRN (21:07)
[2021-11-11] MEDS: Cholecalciferol (D-3) 1,000 UNIT (25MCG) TABLET PO SCH (08:36)
[2021-11-11] MEDS: modafiniL 100 MG TABLET PO SCH (08:36)
[2021-11-11] MEDS: Aspirin 81 MG TAB.CHEW PO SCH (08:36)
[2021-11-11] MEDS: Insulin DETEMIR 100 UNIT/ML X5UNITS SUBQ SCH ×2 (08:37→21:21)
[2021-11-11] MEDS: Cyanocobalamin (B-12) 1,000 MCG TABLET PO SCH (08:37)
[2021-11-11] MEDS: Metoprolol 100 MG TABLET PO SCH ×2 (08:37→21:21)
[2021-11-11] MEDS: cilostazoL 100 MG TABLET PO SCH ×2 (08:37→17:19)
[2021-11-11] MEDS: Insulin LISPRO 300 UNITS/3 ML VIAL SUBQ SCH ×3 (08:37→17:19)
[2021-11-11] MEDS: Gabapentin 100 MG CAPSULE PO SCH ×3 (08:37→21:18)
[2021-11-11] MEDS: Divalproex Sodium 125 MG Sprinkle Capsule (DR) PO SCH (21:19)
[2021-11-11] MEDS: Melatonin 3 MG TABLET PO PRN (21:20)
[2021-11-11] MEDS: Acetaminophen 325 MG TABLET PO PRN (21:20)
[2021-11-12] MEDS: Insulin DETEMIR 100 UNIT/ML X5UNITS SUBQ SCH ×2 (08:05→21:09)
[2021-11-12] MEDS: Insulin LISPRO 300 UNITS/3 ML VIAL SUBQ SCH ×3 (08:06→17:01)
[2021-11-12] MEDS: Aspirin 81 MG TAB.CHEW PO SCH (08:09)
[2021-11-12] MEDS: Cholecalciferol (D-3) 1,000 UNIT (25MCG) TABLET PO SCH (08:09)
[2021-11-12] MEDS: Metoprolol 100 MG TABLET PO SCH ×2 (08:09→21:08)
[2021-11-12] MEDS: cilostazoL 100 MG TABLET PO SCH ×2 (08:10→17:01)
[2021-11-12] MEDS: Gabapentin 100 MG CAPSULE PO SCH ×3 (08:10→21:09)
[2021-11-12] MEDS: modafiniL 100 MG TABLET PO SCH (08:10)
[2021-11-12] MEDS: Cyanocobalamin (B-12) 1,000 MCG TABLET PO SCH (08:10)
[2021-11-12] MEDS: Acetaminophen 325 MG TABLET PO PRN (21:08)
[2021-11-12] MEDS: Divalproex Sodium 125 MG Sprinkle Capsule (DR) PO SCH (21:08)
[2021-11-12] MEDS: Melatonin 3 MG TABLET PO PRN (21:08)
[2021-11-13] MEDS: Insulin LISPRO 300 UNITS/3 ML VIAL SUBQ SCH ×3 (07:46→16:26)
[2021-11-13] MEDS: Gabapentin 100 MG CAPSULE PO SCH ×3 (07:47→20:50)
[2021-11-13] MEDS: Insulin DETEMIR 100 UNIT/ML X5UNITS SUBQ SCH ×2 (07:47→20:51)
[2021-11-13] MEDS: Aspirin 81 MG TAB.CHEW PO SCH (07:48)
[2021-11-13] MEDS: Cyanocobalamin (B-12) 1,000 MCG TABLET PO SCH (07:48)
[2021-11-13] MEDS: Cholecalciferol (D-3) 1,000 UNIT (25MCG) TABLET PO SCH (07:48)
[2021-11-13] MEDS: cilostazoL 100 MG TABLET PO SCH ×2 (07:48→15:30)
[2021-11-13] MEDS: Metoprolol 100 MG TABLET PO SCH ×2 (07:48→20:50)
[2021-11-13] MEDS: modafiniL 100 MG TABLET PO SCH (07:48)
[2021-11-13] MEDS: Melatonin 3 MG TABLET PO PRN (20:50)
[2021-11-13] MEDS: Divalproex Sodium 125 MG Sprinkle Capsule (DR) PO SCH (20:50)
[2021-11-14] MEDS: Acetaminophen 325 MG TABLET PO PRN ×2 (02:45→21:28)
[2021-11-14 04:53] LABS: Hematocrit 30.7 % (37.5-50.1); Mean Corpuscular HGB Conc 32.6 g/dL (31.6-35.5); Mean Corpuscular Hemoglobin 29.2 pg (28.0-33.3); Mean Corpuscular Volume 89.5 fL (83.0-100.0); Mean Platelet Volume 10.8 fL (9.4-12.4); Platelet Count 289 K/mcL (140-400); Red Blood Count 3.43 M/mcL (4.19-5.50); Red Cell Distribution Width 15.9 % (11.5-14.5); White Blood Count 8.2 K/mcL (4.3-11.1)
[2021-11-14 05:11] LABS: Alanine Aminotransferase 41 Units/L (7-52); Albumin 3.7 g/dL (3.5-5.7); Albumin/Globulin Ratio 1.3 (1.1-2.2); Alkaline Phosphatase 62 Units/L (34-104); Aspartate Amino Transferase 22 Units/L (13-39); BUN/Creatinine Ratio 16 (6-26); Bilirubin,Total 0.4 mg/dL (0.3-1.0); Blood Urea Nitrogen 18 mg/dL (8-23); Calcium 9.3 mg/dL (8.6-10.3); Carbon Dioxide 28 mEq/L (23-29); Chloride 102 mEq/L (98-107); Globulin 2.8 g/dL (2.4-3.5); Glucose 151 mg/dL (70-105); Magnesium 1.6 mg/dL (1.6-2.6); Osmolality,Calculated 293 (280-300); Potassium 3.9 mEq/L (3.5-5.1); Sodium 139 mEq/L (136-145); Total Protein 6.5 g/dL (6.4-8.9); eGFR For African Americans > 60 (> 60); eGFR For Non-African Americans > 60 (> 60)
[2021-11-14] MEDS: Aspirin 81 MG TAB.CHEW PO SCH (08:18)
[2021-11-14] MEDS: Cholecalciferol (D-3) 1,000 UNIT (25MCG) TABLET PO SCH (08:18)
[2021-11-14] MEDS: Insulin DETEMIR 100 UNIT/ML X5UNITS SUBQ SCH ×2 (08:18→21:29)
[2021-11-14] MEDS: modafiniL 100 MG TABLET PO SCH (08:19)
[2021-11-14] MEDS: cilostazoL 100 MG TABLET PO SCH ×2 (08:19→16:24)
[2021-11-14] MEDS: Cyanocobalamin (B-12) 1,000 MCG TABLET PO SCH (08:19)
[2021-11-14] MEDS: Metoprolol 100 MG TABLET PO SCH ×2 (08:19→21:28)
[2021-11-14] MEDS: Gabapentin 100 MG CAPSULE PO SCH ×3 (08:19→21:28)
[2021-11-14] MEDS: Sennosides/Docusate Sodium TABLET PO PRN (08:19)
[2021-11-14] MEDS: Insulin LISPRO 300 UNITS/3 ML VIAL SUBQ SCH ×3 (08:21→16:58)
[2021-11-14] MEDS ORDERED: E-Z-PAQUE (BARIUM SULF) SUSP 1 BOTTLE PO ONE (15:05)
[2021-11-14] MEDS ORDERED: E-Z-HD (BARIUM SULF) SUSPENSION PO ONE (15:05)
[2021-11-14] MEDS: Divalproex Sodium 125 MG Sprinkle Capsule (DR) PO SCH (21:28)
[2021-11-14] MEDS: Melatonin 3 MG TABLET PO PRN (21:28)
[2021-11-15] MEDS: modafiniL 100 MG TABLET PO SCH (09:47)
[2021-11-15] MEDS: Cholecalciferol (D-3) 1,000 UNIT (25MCG) TABLET PO SCH (09:47)
[2021-11-15] MEDS: Aspirin 81 MG TAB.CHEW PO SCH (09:47)
[2021-11-15] MEDS: Sennosides/Docusate Sodium TABLET PO PRN (09:47)
[2021-11-15] MEDS: Gabapentin 100 MG CAPSULE PO SCH ×3 (09:47→19:26)
[2021-11-15] MEDS: cilostazoL 100 MG TABLET PO SCH ×2 (09:47→16:58)
[2021-11-15] MEDS: Insulin DETEMIR 100 UNIT/ML X5UNITS SUBQ SCH ×2 (09:48→19:29)
[2021-11-15] MEDS: Cyanocobalamin (B-12) 1,000 MCG TABLET PO SCH (09:48)
[2021-11-15] MEDS: Metoprolol 100 MG TABLET PO SCH ×2 (09:48→19:26)
[2021-11-15] MEDS: Insulin LISPRO 300 UNITS/3 ML VIAL SUBQ SCH ×3 (09:49→16:57)
[2021-11-15] MEDS: Acetaminophen 325 MG TABLET PO PRN (19:22)
[2021-11-15] MEDS: Divalproex Sodium 125 MG Sprinkle Capsule (DR) PO SCH (19:26)
[2021-11-16 07:03] VITALS: BP 102/69; PULSE 80; RESP 14; TEMP 98.6; O2SAT 97
[2021-11-16] MEDS: Insulin LISPRO 300 UNITS/3 ML VIAL SUBQ SCH (07:33)
[2021-11-16] MEDS: modafiniL 100 MG TABLET PO SCH (08:09)
[2021-11-16] MEDS: Cholecalciferol (D-3) 1,000 UNIT (25MCG) TABLET PO SCH (08:10)
[2021-11-16] MEDS: Metoprolol 100 MG TABLET PO SCH (08:10)
[2021-11-16] MEDS: Gabapentin 100 MG CAPSULE PO SCH (08:10)
[2021-11-16] MEDS: Aspirin 81 MG TAB.CHEW PO SCH (08:10)
[2021-11-16] MEDS: cilostazoL 100 MG TABLET PO SCH (08:10)
[2021-11-16] MEDS: Insulin DETEMIR 100 UNIT/ML X5UNITS SUBQ SCH (08:12)
[2021-11-16] MEDS: Cyanocobalamin (B-12) 1,000 MCG TABLET PO SCH (08:12)
== END 2021-11-16 14:50 | disposition home health service (06) | DRG 638 ==
LOC: INPGRE 11-01 19:44
PROVIDERS: ADMIT Family Medicine; ATTEND Family Medicine